=== PATIENT | female | born 2000 | race Caucasian/White ===

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

== ENCOUNTER 2021-06-04 00:18 | Emergency (ER) | payer MEDICAID, SELFPAY ==
[2021-06-04 00:19] VITALS: BP 110/69; PULSE 87; RESP 18; TEMP 36.2; O2SAT 98; BMI 20.1
--- NOTE | 2021-06-04 00:24 | EDS_ITS ---
HPI History of Present Illness HPI Narrative: Patient presents with injuries to both middle fingers that occurred tonight. Patient states she was exercising and trying to catch a weighted ball and her middle fingers were hyperextended. Patient states the pain is worse with any movement. Patient states they feel numb. Patient describes her pain as throbbing. Patient states nothing seems to help with the pain. Patient denies any weakness. Patient denies any other injuries. Chief Complaint: Upper Extremity Injury Informant: patient Occured/Mechanism Comment: Hyperextension Onset/Context/Timing Onset: Today Context: Sudden Onset Timing: Continuous Quality of Pain: Throbbing Location: Bilateral middle fingers Worsened by: Movement Relieved by: Nothing Associated Symptoms Associated Symptoms: Positive for Parasthesia; Negative for Weakness and Loss of Funtion [facility] Medical History (Updated 06/04/21 @ 01:[address] Andrew Salgado, DO) Acute pharyngitis, unspecified Asthma Home Medications NK 09/29/20 [History Last Taken Unknown] Allergy/AdvReac Type Severity Reaction Status Date / Time No Known Allergies Allergy Verified 06/04/21 00:23 Social History Smoking Status: Never smoker ROS ROS ED Constitutional Constitutional ED: Denies chills or fever(s) Eyes Eyes: Denies blurry vision or change in vision ENT ENT ED: Denies rhinorrhea or sore throat Cardiovascular Cardiovascular: Denies chest pain or palpitations Respiratory/Chest Respiratory/Chest: Denies cough or dyspnea Gastrointestinal Gastrointestinal: Denies nausea or vomiting Genitourinary Genitourinary ED: Denies dysuria or hematuria Musculoskeletal Musculoskeletal: Denies back pain or neck pain Integumentary Denies abscess or rash Neurologic Neurologic: Denies headache(s) or weakness Allergic/Immunologic Allergic/Immunologic ED: Denies mouth swelling or urticaria EXAM Physical Exam Const Vital Signs: 06/04/21 00:19 Temperature 97.1 F L Temperature Source Temporal Pulse Rate 87 Respiratory Rate 18 Blood Pressure 110/69 Blood Pressure Mean 82 Pulse Ox 98 Oxygen Delivery Method Room Air Positive well nourished and well developed General Appearance ED: well developed and NAD HEENT Reports moist mucous membranes Neck full ROM Extremity Extremity Narrative: There is tenderness over the middle phalanx of the left third finger. There is some mild edema and ecchymosis over this area. There is no obvious deformity noted. Range of motion was limited in flexion and extension of the MP, PIP, and DIP joints of the left third finger. Sensation was intact to light touch in all digits. Capillary refill was less than 2 seconds in all digits. There is tenderness over the proximal phalanx of the right third finger. There is some mild edema and ecchymosis over this area. There is no obvious deformity. There is no bony crepitance or step-off. Range of motion was limited in flexion and extension of the MP, PIP, and DIP joint of the right third finger. Sensation was intact to light touch in all digits. Capillary refill was less than 2 seconds in all digits. Radial pulses are equal bilaterally. Neuro oriented x3, CN's II-XII intact bilaterally, moves all extremities, no focal motor deficits and no sensory deficits noted Sensorium / Orientation: alert Psych mental status grossly normal MDM MDM MDM Narrative Medical decision making narrative: X-ray of the left third finger was obtained. There are 3 views. On my interpretation, there is a nondisplaced fracture at the base of the middle phalanx on the volar aspect. There is some mild soft tissue swelling. There is no deformity noted. Radiologist also interpreted the x-ray and agrees. X-ray of the right third finger was obtained. There are 3 views. On my interpretation, there is no acute fracture or dislocation. There is some mild soft tissue swelling. Radiologist also interpreted the x-ray and agrees. Patient was advised of her findings. Patient was given AlumaFoam splints for both middle fingers. Patient was instructed to use ice to the area. Patient was instructed to take Tylenol or ibuprofen as needed for pain. Patient understood and was agreeable with the plan. All questions were answered. Discharge Plan Triage Chief Complaint: Upper Extremity Injury ED Provider: Andrew Salgado Dx/Rx/DC Orders Clinical Impression: Fracture of finger, middle phalanx, left, closed, Sprain of interphalangeal joint of right middle finger, initial encounter Instructions: ED Fracture, Finger, Closed, ED Finger Sprain Prescriptions: No Action NK RF: 0 Primary Care Provider: Care Physician,No Primary Referrals: Melanie Sheikh MD [STAFF PHYSICIAN] - 1-2 Weeks Care Physician,No Primary [Primary Care Provider] - Disposition Disposition: Home, Self Care
--- NOTE | 2021-06-04 00:37 | RAD_ITS ---
STUDY: X-RAY - LEFT HAND, ATTENTION LONG FINGER REASON FOR EXAM: Female, 21 years old. Injury/Pain TECHNIQUE: 3 view(s) of the long finger were obtained. COMPARISON: None. FINDINGS: There is an acute intra-articular fracture of the base of the long finger middle phalanx, with a lucent fracture line extending through the palmar aspect of this phalanx along its radial margin; the fracture fragment measures approximately 1 x 2 x 3 mm in diameter and is nondisplaced. There is mild associated soft tissue swelling. Normal metacarpal head. Normal metacarpophalangeal joint. Normal proximal phalanx. Normal distal phalanx. No dislocation. RAD/Finger(s) Min 2 Views IMPRESSION: Nondisplaced volar plate avulsion fracture at the proximal end of the long finger middle phalanx. Electronically Signed: Damon Gooden MD at 1:09 EDT ,
--- NOTE | 2021-06-04 00:40 | RAD_ITS ---
STUDY: X-RAY - RIGHT HAND, ATTENTION LONG FINGER REASON FOR EXAM: Female, 21 years old. Injury/Pain TECHNIQUE: 3 view(s) of the long finger were obtained. COMPARISON: Right finger radiographs of this date.. FINDINGS: Normal metacarpal head. Normal metacarpophalangeal joint. Normal proximal phalanx. Normal middle phalanx. Normal distal phalanx. Normal proximal interphalangeal joint. Normal distal interphalangeal joint. Mild soft tissue swelling noted about the proximal phalanx. RAD/Finger(s) Min 2 Views IMPRESSION: No acute fracture or dislocation. Electronically Signed: Damon Gooden MD at 1:10 EDT ,
== END 2021-06-04 01:57 | disposition home or self-care (01) ==
PROVIDERS: Emergency Provider Emergency Medicine; Visit Provider Emergency Medicine
DX: S62.653A Nondisplaced fracture of middle phalanx of left middle finger, initial encounter for closed fracture (principal); S63.632A Sprain of interphalangeal joint of right middle finger, initial encounter; X50.0XXA Overexertion from strenuous movement or load, initial encounter; Y93.B9 Activity, other involving muscle strengthening exercises; Y99.8 Other external cause status
CPT/HCPCS: 73140; 99283

== ENCOUNTER → 2021-06-26 | Outpatient (CLI) | payer MEDICAID, SELFPAY ==
--- NOTE | 2021-06-26 11:58 | RAD_ITS ---
INDICATION: FRACTURE -- 3RD FINGER EXAMINATION/TECHNIQUE: X-RAY - LEFT HAND XR Fingers Min 2 Views 3 VIEWS COMPARISON: None. FINDINGS: Redemonstration of nondisplaced intra-articular fracture at the base of the third middle phalanx demonstrating progression of changes of healing with increased osseous bridging and decreased conspicuity of the linear lucency. No new or acute fractures. Joint spaces are intact. Soft tissues are unremarkable. RAD/Finger(s) Min 2 Views IMPRESSION: Healing fracture at the base of the third middle phalanx. Electronically Signed: Todd Rayo, at 12:18 EDT ,
== END | disposition home or self-care (01) ==
LOC: MTRAD 11:57
PROVIDERS: Referring Provider Family Medicine; Visit Provider Family Medicine
DX: S62.623A Displaced fracture of middle phalanx of left middle finger, initial encounter for closed fracture (principal); X58.XXXA Exposure to other specified factors, initial encounter
CPT/HCPCS: 73140

== ENCOUNTER 2021-11-16 05:18 | Emergency (ER) | payer MEDICAID, SELFPAY ==
[2021-11-16 05:19] VITALS: BP 125/72; PULSE 65; RESP 18; TEMP 36.7; O2SAT 100; BMI 20.2
--- NOTE | 2021-11-16 05:40 | EDS_ITS ---
HPI HPI - Female History of Present Illness Chief Complaint: Vag Bleeding Informant: patient and spouse/S.O. Narrative Narrative: 21-year-old female presents to the emergency room out of concerns of vaginal bleeding. She states that she had a normal period from November 04 through November 09. She states that last night around 10 PM she began to have vaginal bleeding again. She reports that she has used the Plan B twice this month. She does not have an DAIRY MANAGEMENT SPECIALIST and she does not get regular well woman exams. She does not know she has had HPV vaccination. She notes some dizziness that started last night. She notes no significant abdominal cramping. She has had 3 negative test. [facility] Medical History Acute pharyngitis, unspecified Asthma Home Medications NK 09/29/20 [History Last Taken Unknown] Allergy/AdvReac Type Severity Reaction Status Date / Time No Known Allergies Allergy Verified 11/16/21 05:21 Social History (Updated 11/16/21 @ 05:[address] Juan Carmona DO) Smoking Status: Never smoker substance use type: does not use ROS ROS ED ROS Narrative Dizziness Constitutional Constitutional ED: Denies chills or weight loss Eyes Eyes: Denies change in vision or diplopia ENT ENT ED: Denies ear pain, rhinorrhea or sore throat Cardiovascular Cardiovascular: Denies chest pain, orthopnea, palpitations or racing heartbeat Respiratory/Chest Respiratory/Chest: Denies cough, dyspnea or orthopnea Gastrointestinal Gastrointestinal: Denies abdominal pain, diarrhea, nausea or vomiting Genitourinary Genitourinary ED: Reports other Details: Vaginal bleeding ; Denies dysuria, hematuria or urinary frequency Musculoskeletal Musculoskeletal: Denies arthralgias or myalgias Integumentary Denies abscess or rash Neurologic Neurologic: Denies headache(s) or weakness Psychiatric Psychiatric: Denies anxiety, depression, suicidal ideation or suicidal thoughts Endocrine Endocrinology: Denies polydipsia, polyphagia or polyuria Allergic/Immunologic Allergic/Immunologic ED: Denies mouth swelling, tongue swelling or urticaria EXAM Physical Exam Const Vital Signs: 11/16/21 05:19 Temperature 98.1 F Temperature Source Temporal Pulse Rate 65 Respiratory Rate 18 Blood Pressure 125/72 H Blood Pressure Mean 89 Pulse Ox 100 Oxygen Delivery Method Room Air Positive well nourished and well developed General Appearance ED: well developed HEENT Reports normocephalic, head/scalp atraumatic and moist mucous membranes Eyes PERRL and EOMs intact bilaterally Neck no lymphadenopathy, supple and no JVD Resp normal respiratory effort and clear to auscultation bilaterally Cardio regular rate, regular rhythm and no murmurs GI normal to inspection, nondistended, normoactive bowel sounds and non-tender Palpation: soft Back/Spine no CVA tenderness and normal ROM Extremity normal to inspection General Extremety ED: Negative for edema General Extremity: Negative for edema Neuro oriented x3 and CN's II-XII intact bilaterally Sensorium / Orientation: alert Motor Exam: strength 5/5 throughout Psych mental status grossly normal Mood & Affect: Negative for depressed or tearful Skin no rashes or lesions noted and no wounds MDM MDM MDM Narrative Medical decision making narrative: I think the patient is experiencing abnormal vaginal bleeding due to the use of Plan B x2 in the past 15 days. I stressed the importance of establishing with an DAIRY MANAGEMENT SPECIALIST. Clinically she appears stable with normal vital signs of normal color and capillary refill. Discharge Plan Triage Chief Complaint: Vag Bleeding ED Provider: Juan Carmona Dx/Rx/DC Orders Clinical Impression: Dysfunctional uterine bleeding Instructions: Understanding Uterine Bleeding Prescriptions: No Action NK Primary Care Provider: Care Physician,No Primary Referrals: Surekha Link DO [Med Staff - Active Staff] - As soon as possible Care Physician,No Primary [Primary Care Provider] - Activity Restrictions/Additional Instructions: As discussed it sounds like you are experiencing a normal adverse reaction to the use of the medicine. It is vital for your overall health that you establish with a DAIRY MANAGEMENT SPECIALIST. Disposition Disposition: Home, Self Care
[2021-11-16 05:58] VITALS: BP 125/72; PULSE 65; RESP 18; O2SAT 100
== END 2021-11-16 05:58 | disposition home or self-care (01) ==
LOC: ED 05:48
PROVIDERS: Emergency Provider Emergency Medicine; Visit Provider Emergency Medicine
DX: N93.8 Other specified abnormal uterine and vaginal bleeding (principal)
CPT/HCPCS: 99282